=== PATIENT | female | born 1955 | race Caucasian/White ===

== ENCOUNTER 2021-05-29 05:22 | Observation (INO) ==
--- NOTE | 2021-05-15 09:57 | Anesthesiology Consultation ---
Date of Service May 15, 2021 Assessment & Plan (1) Encounter for pre-operative examination: Chart Review Chart Review: Acceptable Risk for Surgery (pending preop Covid testing results ) and Patient NOT seen in Pre Admission Testing Per nursing assessment 05/14/2020, patient denies any recent travel. No known Covid infection in the past 90 days. Patient is fully vaccinated for Covid. No known Covid positive exposures or Covid related symptoms. Preop Covid testing scheduled 05/27/21= will await results History Surgery Operation Date: 05/29/21 10:55 Proposed Procedures p Laparoscopic Cholecystectomy with Cholangiogram - Jose Griggs MD, FACS Height/Weight Height: 5 ft 2.5 in Weight: 71.214 kg Allergies Allergy/AdvReac Type Severity Reaction Status Date / Time prochlorperazine Allergy Severe CHANGE IN Verified 05/14/21 16:23 VOICE/NECK CONTRACTION house dust mite Allergy Mild CONGESTION Verified 05/14/21 16:23 Medications Home Medications Medication Instructions Recorded Confirmed Last Taken aspirin 81 mg tablet,delayed 81 mg PO QAM 05/11/19 05/14/21 04/27/21 release triamterene 37.5 1 cap PO QAM #90 cap 02/04/21 05/14/21 04/30/21 mg-hydrochlorothiazide 25 mg capsule potassium chloride 20 mEq 20 meq PO QPM tab 04/10/21 05/14/21 04/30/21 tablet,extended release amlodipine 5 mg tablet 5 mg PO QAM 04/25/21 05/14/21 05/01/21 0230 valsartan 160 mg tablet 160 mg PO QAM 04/25/21 05/14/21 05/01/21 02:30 omeprazole 20 mg capsule,delayed 20 mg PO QAM #90 cap 05/13/21 05/14/21 Unknown release Past Medical History Medical History GERD (gastroesophageal reflux disease) Hypertriglyceridemia Lesion of right [place] kidney Metabolic syndrome Mixed hyperlipidemia Multinodular thyroid PCP MONITORING Prediabetes Primary hypertension 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 Past Family History Family History Father Myocardial infarction Heart disease Hypertension Mother Melanoma Hypertension Other Family history non-contributory No family history of adverse response to anesthesia Denies family history of Ovarian cancer Prostate cancer Breast cancer Colorectal cancer Past Surgical History Surgical History History of arthroscopy LEFT KNEE History of colonoscopy History of esophagogastroduodenoscopy (EGD) History of hysterectomy History of tonsillectomy and adenoidectomy [place] teeth removed Social History Smoking Status: Never smoker Do You Dip or Chew Tobacco: No Hx Alcohol Use: Yes Alcohol type: wine alcohol intake frequency: holidays/special occasions only Hx Substance Use: No substance use type: does not use Lab Results Anesthesia Preop Results Results Anesthesia Widget: WBC 6.06 K/uL (4.8-10.8) 05/06/21 Hgb 14.9 g/dL (12.0-16.0) 05/06/21 Hct 44.4 % (37-47) 05/06/21 Plt 334 K/uL (130-400) 05/06/21 Na 139 mmol/L (136-145) 05/06/21 K 3.6 mmol/L (3.5-5.1) 05/06/21 Cl 100 mmol/L (98-107) 05/06/21 CO2 30 mmol/L (21-32) 05/06/21 BUN 17 mg/dl (6-23) 05/06/21 Creat 1.00 mg/dl (0.6-1.2) 05/06/21 Glucose Level 95 mg/dl (70-99(Fasting)) 05/06/21 Testing Electrocardiogram Date: 05/06/21 Findings: + NSR @ (68bpm ) Normal EKG per cardio Chest X-Ray Date: 09/17/20 Findings: + NAD Single view CXR Other Testing Abdomen ultrasound 04/16/21= Stone and sludge-filled gallbladder. No sonographic evidence of acute cholecystitis. No biliary ductal dilation. Hepatic steatosis. Right hepatic lobe hemangioma. The imaged right kidney is unremarkable without hydronephrosis. Abdomen/pelvis CT 09/17/20= There are no acute infectious or inflammatory findings in the abdomen or pelvis. An 11 mm hyperdense lesion arising from the lower pole of the right kidney may represent a complex cyst but cannot be definitively characterized on this examination. A contrast-enhanced renal protocol CT or MRI is recommended for further assessment.
[2021-05-29] MEDS ORDERED: LR 15ML/HR IV SCH (06:00)
--- NOTE | 2021-05-29 06:09 | History & Physical Bridge Note ---
Date of Service May 29, 2021 History & Physical Bridge Note I have examined the patient, reviewed the History & Physical and in the interval since the performance of the History & Physical I have noted the following changes of clinical significance: no changes noted pt examined no abdominal findings all question answered
[2021-05-29] MEDS ORDERED: NALOXONE HCL 0.4 MG/1 ML VIAL/CARP IV PRN (06:42)
[2021-05-29] MEDS ORDERED: FLUMAZENIL 0.1 MG/1 ML 10 ML VIAL IV PRN (06:42)
[2021-05-29] MEDS ORDERED: fentaNYL citrate 100 MCG/2 ML VIAL IV PRN (06:42)
[2021-05-29] MEDS ORDERED: LABETALOL HCL IV 5 MG/ML 20ML IV PRN (06:42)
[2021-05-29] MEDS ORDERED: ePHEDrine sulfate 50 MG/ML AMP IV PRN (06:42)
[2021-05-29] MEDS ORDERED: ONDANSETRON INJ 2 MG/ML 2 ML VIAL IV PRN ×2 (06:42→10:33)
[2021-05-29] MEDS ORDERED: ATROPINE SULFATE 0.1 MG/ML 10ML SYR IV PRN (06:42)
[2021-05-29] MEDS ORDERED: PROPOFOL IV EMULSION 10 MG/ML 20 ML VIAL IV ONE (06:53)
[2021-05-29] MEDS ORDERED: CISATRACURIUM BESYLATE IV SOLN 2 MG/ML 10 ML VIAL IV ONE (06:53)
[2021-05-29] MEDS ORDERED: MIDAZOLAM HCL 1 MG/ML 2ML VIAL ONE (06:54)
[2021-05-29] MEDS ORDERED: fentaNYL citrate 100 MCG/2 ML VIAL ONE ×3 (06:55→08:24)
[2021-05-29] MEDS ORDERED: LIDOCAINE 1% LOCAL 20 ML VIAL ONE (06:57)
[2021-05-29] MEDS ORDERED: EPINEPHrine INJ 1 MG/ML AMP ONE (06:57)
[2021-05-29] MEDS ORDERED: ONDANSETRON INJ 2 MG/ML 2 ML VIAL ONE (07:29)
[2021-05-29] MEDS ORDERED: DEXAMETHASONE SOD INJ 4 MG/ML VIAL ONE (07:29)
[2021-05-29] MEDS ORDERED: GLYCOPYRROLATE 0.2 MG/ML VIAL ONE (07:36)
[2021-05-29] MEDS ORDERED: NEOSTIGMINE METHYLSULFATE 1 MG/ML 10ML VIAL ONE (08:38)
[2021-05-29] MEDS ORDERED: OPTIRAY 300 IV ONE (08:43)
--- NOTE | 2021-05-29 08:46 | Post Operative Brief Note ---
PG Immediate Post Op with CF Date of Surgery May 29, 2021 Pre & Post Diagnosis Operation Date: 05/29/21 07:00 Pre-Op Diagnosis: Cholelithiasis Post-Op Diagnosis: Cholelithiasis I identified the patient and participated in the time-out.: Yes Procedure Operation Date: 05/29/21 07:00 Actual Procedures p Laparoscopic Cholecystectomy with Intraoperative Cholangiogram(Not Applicable) - Jose Griggs MD, FACS Surgeon Jose Griggs MD, FACS Client Service Supervisor Mike Dupree Estimated Blood Loss 50 Findings Consistent with Post-Op Diagnosis Specimens Specimen Description: A. Gallbladder Drains [place] Drain (19 [place])
--- NOTE | 2021-05-29 09:06 | Operative Report ---
Post Operative Report Pre & Post Diagnosis Operation Date: 05/29/21 07:00 Pre-Op Diagnosis: Cholelithiasis Post-Op Diagnosis: Cholelithiasis I identified the patient and participated in the time-out.: Yes Procedure Operation Date: 05/29/21 07:00 Actual Procedures p Laparoscopic Cholecystectomy with Attempted Intraoperative Cholangiogram(Not Applicable) - Jose Griggs MD, FACS The patient was brought into the operating theater general trach anesthesia the abdomen was prepped byline solution properly draped timeout was had patient identified made a small incision supraumbilically sufficient to accommodate a Veress needle followed by 5 mm trocar after we established the pneumoperitoneum at about 8 followed by the camera point of entry spectrin no injury identified on direct visualization we placed a 5 mm epigastric trocar and 2 subcostal 5 mm trochars all with preemptive analgesic of 0.5% Marcaine patient was placed in reverse Trendelenburg rotated to the left patient has significant adhesions to the gallbladder the gallbladder appeared chronically thickened with the lateral trocar large grasper was inserted to grab the fundus of the gallbladder to elevated up I was very difficult even to try to elevated therefore we were able then to take adhesions which was significant to the gallbladder some of them with scissors and cautery. This took up quite some time and as we worked on the gallbladder was significant continuously be markedly chronically inflamed we are able then to elevate towards the neck of the gallbladder we stayed close to the gallbladder itself and we used blunt dissection mostly and identified that the common bile duct was fairly near to the neck of the gallbladder although no connection between the gallbladder and the common bile duct noted therefore no Mirizzi syndrome we then worked her way around the cystic duct which was more prominent and normal as stated it was hard to really mobilize the gallbladder significant and elevated would not budge due to his chronic inflammation we dissected out the cystic duct at its exit of the gallbladder and the cystic duct was small and we could see just by traction there was a small opening in the distal cystic duct just there but not into the wall of the common bile duct we try place a urethral catheter #4 transversing abdominal wall with a 14 Angiocath we were unable to pass the catheter into the common bile duct it would not budge beyond the cystic duct entry but the bowel that came out of the this opening was clear bilious without any fragments of stone once we were able to get around the cystic duct completely and freeing it up and had attempted the cholangiogram even using a different Cholangiocath I converted to a 5 mm epigastric port to a 12 mm and use 10 mm clips to secure the cystic duct parallel to the common bile duct and we had control that opening there is no evidence that the opening was into the common bile duct it was apparently just that this cystic duct opened up the small opening just by traction the place to 10 mm clips as stated and we were secured there was no evidence of any more leakage pictures were taken at the end the procedure to document the clips in the common bile duct area we then freed up the gallbladder which was difficult to even free from the liver and we try to identify and work around the cystic artery quite inflamed area and as we dissected out close to the gallbladder itself we identified that the patient's cystic artery was into the gallbladder but probably right hepatic was a prominent artery just at the neck of the gallbladder and the arm that we left alone or dissection was mostly blunt but electrocautery to free up this thickened gallbladder from the liver there was no true plane from the gallbladder into the liver until we were almost up to the upper third of the gallbladder near the fundus electrocautery was used to control the area and opening in and the gallbladder was made and a large stone extracted out that we would recover at the end of the procedure once the gallbladder was freed completely from the liver we placed an Endopouch and took it out intact through the epigastric port we had to enlarge the opening dilated the opening where the calluses accommodate this thickened gallbladder with stones as stated then we used a grasper to retrieve the large stone that at the ball there is no evidence of any other stones in the subhepatic area we then control hemostasis starting at the top and working our way down with electrocautery suction.moderate amount of oozing was present throughout the case mostly due to the chronic inflammation and our dissection but no prominent vein or artery was appreciated in the bleeding elected at this point to use the camera placed in the right upper quadrant trocar site to visualize her initial entry into the abdomen and no adhesions to the anterior abdominal wall was noted I elected that would drain the subhepatic area with a drain 19 Williams prior to doing that we did take a picture of the dissection down towards the common bile duct and neck of the gallbladder the drain was placed subhepatic leak taken out through the lateral port site on the right side to skin edge with 2-0 silk individual trochars removed under direct visualization a last umbilical trocar 0 Vicryl [id number] was used the fascial stitch in the epigastric area with one stitch 0 Vicryl to approximate the subcutaneous tissue and 4-0 Monocryl for skin edges procedure was tolerated well by the patient estimated blood loss approximately 50 cc Addendum Marielena Perry physician retail administrative assistant was present throughout the case and helped with retraction exposure and wound closure Addendum spoke with her Marshall at [phone] Surgeon Jose Griggs MD, FACS Audit Tech Mike Dupree Estimated Blood Loss 50 Findings Consistent with Post-Op Diagnosis Chronic cholecystitis cholelithiasis Specimens Gallbladder and stone Drains 19 Williams subhepatic taken out through the right upper quadrant trocar site Indications Symptomatic chronic cholecystitis cholelithiasis Description of Procedure merda I attest to the content of the Intraoperative Record and any orders documented therein. Any exceptions are noted below.
[2021-05-29] MEDS ORDERED: MoRPHine SULFATE 2 MG/ML CARP IV PRN (10:33)
[2021-05-29] MEDS ORDERED: MoRPHine SULFATE 4 MG/ML 1 ML CARP\\VIAL IV PRN (10:33)
[2021-05-29] MEDS ORDERED: oxyCODONE/ACETAMINOPHEN 5mg/325mg TAB PO PRN (10:33)
--- NOTE | 2021-05-29 10:51 | Anesthesiology Progress Note ---
Date of Service May 29, 2021 Anesthesia Post Procedure Vital Signs Vital Signs: Temp Pulse Pulse Resp BP Pulse Ox 05/29/21 10:33 36.7 C 62 16 101/57 L 94 05/29/21 10:05 58 L 19 103/57 L 96 05/29/21 09:55 37 C 62 18 120/61 96 05/29/21 09:45 57 L 15 127/71 98 05/29/21 09:35 56 L 12 116/68 98 05/29/21 09:25 56 L 16 124/64 98 05/29/21 09:15 55 L 21 128/70 100 05/29/21 09:09 37.4 C 63 18 119/71 100 05/29/21 05:40 37.2 C 68 18 158/83 H 97 Pain Intensity Abdomen: Pain Intensity: 2 Transfer of Care Handoff Completed per policy Notes Mental Status: alert / awake / arousable Patient Amnestic to Procedure: Yes Nausea / Vomiting: adequately controlled Pain: adequately controlled Airway Patency, RR, SpO2: stable & adequate BP & HR: stable & adequate Hydration State: stable & adequate Anesthetic Complications: no major complications apparent
[2021-05-29] MEDS: LACTATED RINGER'S 1,000 ML IV SCH ×2 (10:53→23:15)
[2021-05-29] MEDS: PANTOprazole 40 MG TAB PO SCH (11:55)
[2021-05-29] MEDS: amLODIPine BESYLATE 5 MG TAB PO SCH (11:55)
[2021-05-29] MEDS: oxyCODONE/ACETAMINOPHEN 5mg/325mg TAB PO PRN ×2 (11:57→21:51)
[2021-05-30] MEDS: oxyCODONE/ACETAMINOPHEN 5mg/325mg TAB PO PRN ×2 (02:24→13:51)
[2021-05-30 05:22] VITALS: TEMP 98.1
[2021-05-30 06:41] LABS: Hematocrit (blood only) 31.4 % (37-47); Hemoglobin 10.1 g/dL (12.0-16.0); Immature Granulocytes # (auto) 0.03 K/uL (0.00-0.02); Immature Granulocytes % (auto) 0.3 %; Lymphocytes # (auto) 0.79 K/uL (1.2-3.4); Lymphocytes % (auto) 7.6 %; Mean Corpuscular Hemoglobin 28.4 pg (25-34); Mean Corpuscular Hgb Conc 32.2 g/dL (32-36); Mean Corpuscular Volume 88.2 fL (80-100); Mean Platelet Volume 10.5 fL (7.4-10.4); Monocytes # (auto) 0.62 K/uL (0.11-0.59); Monocytes % (auto) 5.9 %; Neutrophils % (auto) 86.2 %; Platelet Count 280 K/uL (130-400); RDW Coefficient of Variation 14.6 % (11.5-14.5); RDW Standard Deviation 47.2 fL (36.4-46.3); Red Blood Count 3.56 M/uL (4.2-5.4); White Blood Count 10.44 K/uL (4.8-10.8)
[2021-05-30 06:54] LABS: Albumin Level 3.8 gm/dl (3.4-5.0); BUN Creatinine Ratio 16.1 (10-20); Bilirubin Direct 0.1 mg/dl (0-0.2); Bilirubin,Total 0.3 mg/dl (0.2-1.0); Calcium 8.9 mg/dl (8.5-10.1); Creatinine Clr Calc Pharmacy 59.2 ml/min; Est GFR (African American) 80.5 ml/min; Est GFR (Non-African American) 69.4 ml/min; Total Protein 5.8 gm/dl (6.0-8.3)
--- NOTE | 2021-05-30 07:10 | Surgery Progress Note ---
Date of Service May 30, 2021 Assessment & Plan (1) Cholelithiasis: Plan: Intraoperative findings were discussed with the patient Her liver function tests are normal As stated we will repeat her hemoglobin about noon or so and if stable she can be discharged definitely leave the drain in until we see her on Wednesday As stated above the drain is serosanguineous nonbilious All question answered Admission and Anticipated Discharge Date Admission Date: May 29, 2021 Subjective Resting comfortably tolerated clear liquids well last night no major issues she would like more to eat we will put her on a regular diet Physical Exam Physical Exam: Abdomen is softly distended no tenderness Williams drainage serosanguineous Results & Data ([facility]) Vital Signs (Past 12 Hours) Vital Signs Temp Pulse Resp BP Pulse Ox 05/30/21 03:10 36.7 C 75 16 130/75 94 05/29/21 21:54 36.4 C L 73 14 123/67 91 Laboratory Results Hemoglobin noted likely dilutional and intraoperative blood loss we will plan to recheck at 12 or 1:00 today PG Care Time/CCT Total # of Minutes Spent Total Time Spent with Patient: Total time spent is greater than 50% in coordination of care (as documented) at patient's floor/unit and/or counseling patient: Coding Level of Care Code None Diagnoses Cholelithiasis K80.20
[2021-05-30 07:46] VITALS: BP 97/55; PULSE 69; O2SAT 92
[2021-05-30] MEDS: PANTOprazole 40 MG TAB PO SCH (08:27)
[2021-05-30] MEDS: amLODIPine BESYLATE 5 MG TAB PO SCH (08:27)
[2021-05-30] MEDS: LACTATED RINGER'S 1,000 ML IV SCH (08:28)
[2021-05-30 12:30] LABS: Hematocrit (blood only) 30.4 % (37-47); Hemoglobin 9.9 g/dL (12.0-16.0); Mean Corpuscular Hemoglobin 28.9 pg (25-34); Mean Corpuscular Hgb Conc 32.6 g/dL (32-36); Mean Corpuscular Volume 88.9 fL (80-100); Mean Platelet Volume 10.4 fL (7.4-10.4); Platelet Count 269 K/uL (130-400); RDW Standard Deviation 48.6 fL (36.4-46.3); Red Blood Count 3.42 M/uL (4.2-5.4); White Blood Count 10.88 K/uL (4.8-10.8)
--- NOTE | 2021-06-03 09:22 | Discharge Summary ---
Date of Service May 30, 2021 Principal Diagnosis cholelithiasis Discharge Exam awake/alert Gastrointestinal (Abdomen) Inspection/Auscultation: + abdominal surgical incision (c/d/i) and + abdominal surgical drain present (serosangeneous ) Percussion/Palpation: abdomen soft Discharge Data Allergies Allergy/AdvReac Type Severity Reaction Status Date / Time prochlorperazine Allergy Severe CHANGE IN Verified 05/29/21 05:35 VOICE/NECK CONTRACTION house dust mite Allergy Mild CONGESTION Verified 05/29/21 05:35 Procedures Performed Operation Date: 05/29/21 07:00 Actual Procedures p Laparoscopic Cholecystectomy with Attempted Intraoperative Cholangiogram(Not Applicable) - Jose Griggs MD, FACS Hospital Course (1) Cholelithiasis: This is a 65yF who presented to the [facility] on 05/29/21 for an elective cholecystectomy with Dr. Griggs. The patient tolerated the procedure well, see op note for full details. Due to intraop findings a sharri drain was placed and the patient was admitted for overnight observation. Her diet was advanced as tolerated and pain controlled on prn pain medications. On POD#1 LFTs were within normal limits and BERNARDO drain serosanguineous. A repeat Hbg was obtained and was stable. A regular diet was tolerated and her pain controlled. Education was provided on sharri drain care. She was deemed stable for discharge on [address] drain in place. She was instructed to follow up with Dr. Griggs the following week for follow up and possible drain removal. Total Time Total Time Spent Total Time Spent (In Minutes): 15 Discharge Plan Discharge Items Patient Disposition: Home - Self-Care Reason For Visit: Cholelithiasis Discharge Diagnosis: laparoscopic cholecystectomy Activity: Per Instructions section Lifting: No more than 10 pounds Bathing Comment: may shower starting 05/30/21; no soaking in tubs/pools Exercise/Sports: Wait until after follow-up appointment Driving/Machine Use: no driving while taking narcotics for pain Non-emergency contact: Surgeon Call non-emergency contact if: you have any medication questions, your symptoms worsen, your pain is not controlled, your pain is concerning for you, you have a fever, your temperature is above 101.5, your wound has increased redness, your wound has increased drainage and your wound pain has increased Follow-up/Referrals: Jose Griggs MD, FACS [Surgeon] - (Please call to schedule follow up in clinic next Wednesday for possible drain removal) Octavia Boss MD [Primary Care Provider] - Diet: Regular Addtl Attending Provider Instructions: You have small white bandages over your incisions called steri strips. You may shower with these on. They will tend to fall off on their own within 7-10 days Please care for your surgical drain as you have been instructed in the hospital. Empty drain 2-3x/daily and measure output. Please follow up in clinic with Dr. Griggs next Wednesday06/03/21 for possible drain removal. Pending Studies at Discharge: Yes Studies:: surgical pathology Stand-Alone Forms: My [facility] Medications and DC Order Prescriptions: New oxycodone-acetaminophen [Percocet] 5-325 mg tablet 1 - 2 tab PO Q4H PRN (Reason: pain, initial therapy, max 6 daily) Qty: 15 RF: 0 Continued omeprazole 20 mg capsule,delayed release(DR/EC) 20 mg PO QAM Qty: 90 RF: 3 aspirin 81 mg tablet,delayed release (DR/EC) 81 mg PO QAM RF: 0 triamterene-hydrochlorothiazid 37.5-25 mg capsule 1 cap PO QAM Qty: 90 RF: 3 potassium chloride 20 mEq tablet extended release 20 meq PO QPM RF: 0 amlodipine 5 mg tablet 5 mg PO QAM RF: 0 valsartan 160 mg tablet 160 mg PO QAM RF: 0 Discharge Orders: Discharge Order (Routine); Ordered 05/30/21 Ordered By: Marielena Escobar Admission Data Admit Date/Time: 05/29/21 08:59 Attending Provider: Jose Griggs Admit Provider: Jose Griggs Primary Care Provider: Octavia Boss Other Interventions: Discharge Summary Assessment (RN) Last Done: 05/30/21 13:39 Coding Level of Care Code D/C DAY MANAGEMENT <30 MINS Diagnoses Cholelithiasis K80.20
== END 2021-05-30 14:00 | disposition home or self-care (01) ==
LOC: ASU 05:22 → 3W 08:59 → INTOOBSV 08:59